=== PATIENT | male | born 1980 | race Caucasian/White ===

== ENCOUNTER 2018-04-03 21:02 | Inpatient (IN) | payer BC ==
[~2018-04-03] VITALS: Ht 177.8 cm; Wt 123.6 kg
[~2018-04-03 21:02] MED LIST: AVALIDE 150/1 TABLET PO; IRON325 M1 PO; PROZAC20 MG PO; ULTRAM50 MG PO
[2018-04-04 06:29] VITALS: BP 133/83
[2018-04-04 13:20] VITALS: BP 130/74
[2018-04-04 15:59] VITALS: BP 116/59
[2018-04-04 20:34] VITALS: BP 135/71
[2018-04-04 23:52] VITALS: BP 121/64
[2018-04-05 06:45] LABS: HEMATOCRIT 36.6 % (38.0-50.0); MCV 93.8 FL (86-99)
[2018-04-05 07:01] LABS: CHLORIDE 103 MEQ/L (99-109); CREATININE 0.9 MG/DL (0.6-1.3); GFR ESTIMATE (CALCULATED) > 59 mL/min/ (58.99-99999); GLUCOSE 102 mg/dL (70-99); POTASSIUM 4.5 MEQ/L (3.7-5.4); SODIUM 141 MEQ/L (136-147); UREA NITROGEN (BUN) 13 mg/dL (9-23)
[2018-04-05 08:15] VITALS: BP 141/65
[2018-04-05 11:05] VITALS: BP 117/69
[2018-04-05 15:45] VITALS: BP 117/58
[2018-04-05 20:12] VITALS: BP 142/77
[2018-04-05 23:30] VITALS: BP 123/61
[2018-04-06 03:30] VITALS: BP 111/54
[2018-04-06 07:02] LABS: HEMATOCRIT 34.3 % (38.0-50.0); HEMOGLOBIN 11.5 G/DL (12.5-16.6); MCV 93.2 FL (86-99)
[2018-04-06] MEDS ORDERED: ASPIR-LOW81 MG PO (07:10)
[2018-04-06] MEDS ORDERED: METHOCARBAMOL750 MG PO (07:11)
[2018-04-06] MEDS ORDERED: OXYCODONE HCL5 MG PO (07:11)
[2018-04-06] MEDS ORDERED: OXYCONTIN10 MG PO (07:11)
[2018-04-06 07:15] VITALS: BP 136/63
[2018-04-06] MEDS ORDERED: CELEBREX200 MG PO (08:14)
[2018-04-06 11:32] VITALS: BP 120/63
== END 2018-04-06 11:33 | DRG 470 ==
LOC: ENRESERV 21:02 → 2SOUTH 04-04 05:04 → 3WEST 04-04 05:04 → 2SOUTH 04-04 10:56 → 3WEST 04-04 13:15
PROVIDERS: Orthopaedic Surgery
DX: M17.31 Unilateral post-traumatic osteoarthritis, right knee (principal); Z68.39 Body mass index [BMI] 39.0-39.9, adult; I10 Essential (primary) hypertension; K21.9 Gastro-esophageal reflux disease without esophagitis; Z87.891 Personal history of nicotine dependence; F41.8 Other specified anxiety disorders
CPT/HCPCS: 73560; 76000; 80048; 85014; 85018; 93971; C1713; C1776; J0131; J0690; J1100; J1170; J1885; J2250; J2405; J2550; J2795; J3010; J3475; J7050; J7120; J7643; S0020